=== PATIENT | female | born 1985 | race Caucasian/White ===

== ENCOUNTER 2022-02-22 04:55 | Emergency (ER) | payer MEDICAID ==
[~2022-02-22] VITALS: Ht 157.5 cm; Wt 72.6 kg
[2022-02-22 05:10] VITALS: BP 100/72
--- NOTE | 2022-02-22 05:15 | NUR ---
Patient ambulated to bed 9.
--- NOTE | 2022-02-22 05:30 | NUR ---
36 yo f bib self with c/c of left LE swelling x1day. swelling present. discoloration present on upper left extremity. pt denies injuries. pt states leg felt hot last night. on palpation leg was slightly warmer than rt leg. denies hx, rx and allergies
[2022-02-22] MEDS ORDERED: CEPH-588 PO (05:44)
[2022-02-22 05:52] VITALS: BP 100/72
== END 2022-02-22 05:52 | disposition home or self-care (01) ==
LOC: MED 04:55
DX: L03.116 Cellulitis of left lower limb (principal); Z79.899 Other long term (current) drug therapy
CPT/HCPCS: 99283